=== PATIENT | female | born 1955 | race Caucasian/White ===

== ENCOUNTER → 2024-11-21 10:26 | Outpatient (REF) | payer OTHER, SELFPAY | LOC: RAD 10:26 | PROVIDERS: ATTENDING PHYSICIAN Family Medicine | DX: M81.0 Age-related osteoporosis without current pathological fracture (principal) | CPT/HCPCS: 77080 ==

== ENCOUNTER → 2024-11-24 08:35 | Outpatient (REF) | payer OTHER, SELFPAY | LOC: RAD 08:35 | PROVIDERS: ATTENDING PHYSICIAN Family Medicine; REFERRING PHYSICIAN Student in an Organized Health Care Education/Training Program | DX: M79.672 Pain in left foot (principal); M25.571 Pain in right ankle and joints of right foot | CPT/HCPCS: 73610; 73630 ==